=== PATIENT | male | born 1975 | race Two or more races ===

== ENCOUNTER 2017-06-15 11:08 | Emergency (ER) | payer SELFPAY ==
[~2017-06-15] VITALS: Ht 167.6 cm; Wt 79.4 kg
--- NOTE | 2017-06-15 11:08 | NUR ---
c/o sorethroat x 5 days. awaiting md order. noemy pt.
--- NOTE | 2017-06-15 11:15 | NUR ---
dr lin at bedside for eval
[2017-06-15] MEDS ORDERED: ONDANSETRON HCL/PF 4 MG/2 ML VIAL ONE (11:25)
[2017-06-15] MEDS ORDERED: IV NS 0.9% 1,000 ML ONE (11:25)
[2017-06-15] MEDS ORDERED: CEFTRIAXONE 1GM BAG (ER ONLY) 50 ML IV ONE (11:25)
[2017-06-15] MEDS ORDERED: KETOROLAC TROMETHAMINE INJ 30 MG/ML VIAL ONE (11:25)
[2017-06-15] MEDS ORDERED: IV SET PRIMARY 1 EA INFUS.SET MC ONE (11:25)
[2017-06-15] MEDS ORDERED: DEXAMETHASONE SOD PHOSPHATE 10 MG/ML VIAL ONE (11:25)
[2017-06-15] MEDS ORDERED: IV SET PRIMARY PUMP SET 1 EA INFUS.SET MC ONE (11:25)
--- NOTE | 2017-06-15 11:25 | NUR ---
lfa #18 iv access. blood sample collected sent to lab
--- NOTE | 2017-06-15 11:25 | NUR ---
BLOOD CULTURE DRAWN .DR KYLE MADE AWARE . REFUSED TO ORDER CLUTURE AT THIS TIME.
[2017-06-15] MEDS ORDERED: IV NS 0.9% 1,000 ML BAG IV ONE (11:30)
[2017-06-15] MEDS ORDERED: DEXAMETHASONE SOD PHOSPHATE 10 MG/ML VIAL IV ONE (11:30)
[2017-06-15] MEDS ORDERED: KETOROLAC TROMETHAMINE INJ 30 MG/ML VIAL IV ONE (11:30)
[2017-06-15] MEDS ORDERED: ONDANSETRON HCL/PF 4 MG/2 ML VIAL IVP ONE (11:30)
[2017-06-15] MEDS ORDERED: CEFTRIAXONE 1GM BAG (ER ONLY) 1 GM/50 ML PIGGYBACK IV ONE (11:30)
[2017-06-15 11:37] LABS: BASOPHILS # (AUTO) 0.2 /CMM (0.0-0.2); BASOPHILS % (AUTO) 1.5 % (0.0-2.0); EOSINOPHILS # (AUTO) 0.9 /CMM (0.0-0.7); HEMATOCRIT 44 % (39-51); HEMOGLOBIN 14.5 g/dL (13.5-17.5); LYMPHOCYTES # (AUTO) 1.4 /CMM (0.8-4.8); LYMPHOCYTES % (AUTO) 10.1 % (20.0-44.0); MEAN CORPUSCULAR HEMOGLOBIN 29 PG (26.0-33.0); MEAN CORPUSCULAR HGB CONC 33 g/dl (31.0-36.0); MEAN CORPUSCULAR VOLUME 88 fL (80-96); MONOCYTES # (AUTO) 0.9 /CMM (0.1-1.30); MONOCYTES % (AUTO) 6.6 % (2.0-12.0); NEUTROPHILS # (AUTO) 10.1 /CMM (1.8-8.9); NEUTROPHILS % (AUTO) 74.8 % (43.0-81.0); PLATELET COUNT (AUTO) 262 /CMM (150-450); RDW COEFFICIENT OF VARIATION 12.6 (11.5-15.0); RED BLOOD CELL COUNT(AUTO) 4.99 MIL/uL (4.5-6.0); WHITE BLOOD COUNT (AUTO) 13.5 K/uL (4.3-11.0)
[2017-06-15 11:46] LABS: CALCIUM, SERUM 8.8 mg/dL (8.5-10.1); CREATININE 0.7 mg/dL (0.6-1.3); POTASSIUM 3.7 mmol/L (3.5-5.1)
[2017-06-15] MEDS ORDERED: IOHEXOL-300 100 ML VIAL IV ONE (12:08)
[2017-06-15] MEDS ORDERED: IV NS 0.9% 250 ML IV ONE (12:08)
[2017-06-15] MEDS ORDERED: CT SWABBABLE VALVE TRANS SET 1 EA INFUS.SET MC ONE (12:08)
--- NOTE | 2017-06-15 13:15 | NUR ---
IV removed. Catheter intact and site benign. Pressure and 4x4 applied to site. No bleeding noted.
--- NOTE | 2017-06-15 13:15 | NUR ---
Patient discharged to home in stable condition. Written and verbal after care instructions given. Patient verbalizes understanding of instruction.
[2017-06-15 13:17] VITALS: BP 145/90
== END 2017-06-15 13:17 | disposition home or self-care (01) ==
LOC: ER 11:10
DX: J02.9 Acute pharyngitis, unspecified (principal); J03.90 Acute tonsillitis, unspecified; E11.9 Type 2 diabetes mellitus without complications
CPT/HCPCS: 36415; 70491; 80048; 85025; 96365; 96375; 99285; A4606; J0696; J1100; J1885; J2405; J7030; J7050; Q9967; Z7610

== ENCOUNTER 2017-06-16 09:44 | Inpatient (IN) | payer MEDICAID ==
[~2017-06-16] VITALS: Ht 167.6 cm; Wt 81.6 kg
--- NOTE | 2017-06-16 09:45 | NUR ---
PRESENTS SELF TO ED DT UNRESOLVED SORETHROAT AFTER ATB. PATIENT WAS IN ED YESTERDAY FOR SAME REASON. PATIENT CO 9/10 PAIN. SKIN IS WARM TO TOUCH AND NON DIAPHORETIC,. PATIENT IS AFEBRILE. VSS
--- NOTE | 2017-06-16 10:00 | NUR ---
ICV ACCESSED TO LAC 20. BLOOD SMPLE SENT TO LAB
[2017-06-16] MEDS ORDERED: FEE PK DOSING 1 MIN EA MC ONE (10:22)
[2017-06-16] MEDS ORDERED: IV NS 0.9% 500 ML IV ONE (10:59)
[2017-06-16] MEDS ORDERED: MORPHINE SULFATE INJ 4 MG/ML DISP.SYRIN ONE (10:59)
[2017-06-16] MEDS ORDERED: IV SET PRIMARY PUMP SET 1 EA INFUS.SET MC ONE ×4 (10:59→17:10)
[2017-06-16] MEDS ORDERED: MORPHINE SULFATE INJ 2 MG/ML DISP.SYRIN IV ONE (11:00)
[2017-06-16] MEDS ORDERED: LIDOCAINE 1%-EPI 1:100,000 20 ML VIAL TP ONE (11:00)
[2017-06-16] MEDS ORDERED: IV NS 0.9% 500 ML BAG IV ONE (11:00)
[2017-06-16] MEDS ORDERED: LIDOCAINE SOLN 4% 50 ML BOTTLE TP ONE (11:00)
[2017-06-16] MEDS ORDERED: LIDOCAINE HCL/PF 1% 30 ML SDV ONE (11:02)
[2017-06-16] MEDS ORDERED: LIDOCAINE 2%-EPI 1:100,000 30 ML VIAL ONE (11:06)
[2017-06-16] MEDS ORDERED: DEXAMETHASONE SOD PHOSPHATE 10 MG/ML VIAL ONE (12:05)
[2017-06-16] MEDS ORDERED: IV NS 0.9% 1,000 ML ONE ×2 (12:06→17:10)
[2017-06-16] MEDS ORDERED: KETOROLAC TROMETHAMINE INJ 30 MG/ML VIAL ONE (12:06)
--- NOTE | 2017-06-16 12:16 | NUR ---
PRESENTED CASE TO [facility] FOR HIGHER LEVEL OF CARE TRANSFER. AWAITING CALL BACK
[2017-06-16] MEDS ORDERED: IV NS 0.9% 1,000 ML BAG IV ONE (12:30)
[2017-06-16] MEDS ORDERED: DEXAMETHASONE SOD PHOSPHATE 10 MG/ML VIAL IV ONE (12:30)
[2017-06-16] MEDS ORDERED: KETOROLAC TROMETHAMINE INJ 30 MG/ML VIAL IV ONE (12:30)
[2017-06-16 12:34] LABS: BASOPHILS # (AUTO) 0.3 /CMM (0.0-0.2); BASOPHILS % (AUTO) 2.1 % (0.0-2.0); EOSINOPHILS # (AUTO) 0.1 /CMM (0.0-0.7); EOSINOPHILS % (AUTO) 0.4 % (0.0-6.0); HEMATOCRIT 40 % (39-51); LYMPHOCYTES # (AUTO) 1.5 /CMM (0.8-4.8); LYMPHOCYTES % (AUTO) 10.7 % (20.0-44.0); MEAN CORPUSCULAR HEMOGLOBIN 29 PG (26.0-33.0); MEAN CORPUSCULAR HGB CONC 33 g/dl (31.0-36.0); MEAN CORPUSCULAR VOLUME 88 fL (80-96); MONOCYTES % (AUTO) 7.7 % (2.0-12.0); NEUTROPHILS # (AUTO) 10.7 /CMM (1.8-8.9); NEUTROPHILS % (AUTO) 79.1 % (43.0-81.0); PLATELET COUNT (AUTO) 268 /CMM (150-450); RDW COEFFICIENT OF VARIATION 12.4 (11.5-15.0); RED BLOOD CELL COUNT(AUTO) 4.53 MIL/uL (4.5-6.0); WHITE BLOOD COUNT (AUTO) 13.6 K/uL (4.3-11.0)
[2017-06-16 12:44] LABS: CALCIUM, SERUM 8.4 mg/dL (8.5-10.1); CREATININE 0.7 mg/dL (0.6-1.3); POTASSIUM 4.2 mmol/L (3.5-5.1)
[2017-06-16] MEDS ORDERED: CLINDAMYCIN 900 MG in IV D5W 50 ML IV SCH (13:00)
--- NOTE | 2017-06-16 13:20 | NUR ---
[facility] TRANSFER LINE CALLED BACK. THEY WILL NOT BE ACCEPTING THE PATIENT DUE TO A LACK OF CAPACITY
--- NOTE | 2017-06-16 14:00 | NUR ---
LEFT MESSAGE WITH DR NAVIN STRINGER STRAINER CLEANER FOR CONSULT
--- NOTE | 2017-06-16 14:39 | NUR ---
LEFT MESSAGE WITH DR KYREE JUAN AUDIO VISUAL PROJECT MANAGER FOR CONSULT
--- NOTE | 2017-06-16 14:43 | NUR ---
DR KYREE JUAN CALLED, TRANSFERRED CALL TO DR CADENA
--- NOTE | 2017-06-16 14:47 | NUR ---
PER DR CADENA, DR JUAN WILL SEE THE PATIENT HERE TOMRROW
--- NOTE | 2017-06-16 14:49 | NUR ---
PAGED AUTOMATION QTP TESTER FOR [facility] DR ILYA THAKUR FOR ADMISSION
[2017-06-16] MEDS ORDERED: ZOLPIDEM TARTRATE 5 MG TABLET PO PRN (16:00)
[2017-06-16] MEDS ORDERED: HYDROCODONE/APAP 5/325MG 1 EACH TABLET PO PRN (16:00)
[2017-06-16] MEDS ORDERED: VANCOMYCIN 1 GM in IV D5W 250 ML IV SCH (16:00)
[2017-06-16] MEDS ORDERED: ONDANSETRON HCL/PF 4 MG/2 ML VIAL IVP PRN (16:00)
[2017-06-16] MEDS ORDERED: MAGNESIUM HYDROXIDE 30 ML UDC PO PRN (16:00)
[2017-06-16] MEDS ORDERED: MAG HYDROX/AL HYDROX/SIMETH 30 ML UDC PO PRN (16:00)
[2017-06-16] MEDS ORDERED: ACETAMINOPHEN 325 MG TABLET PO PRN (16:00)
[2017-06-16] MEDS ORDERED: MORPHINE SULFATE INJ 2 MG/ML DISP.SYRIN IV PRN (16:00)
[2017-06-16] MEDS ORDERED: Z GUARD REMEDY 2 OZ OINT TP PRN (16:00)
[2017-06-16] MEDS ORDERED: HYDROCODONE/APAP 10/325MG 1 EA TABLET PO PRN (16:00)
--- NOTE | 2017-06-16 17:04 | NUR ---
MELISSA OUT DR CARABALLO'S ORDER IN THE ED PER RONDA SWENSON SUP.
--- NOTE | 2017-06-16 17:06 | NUR ---
CALLED PHARMACY FOR SHILOH
[2017-06-16] MEDS: IV NS 0.9% 1,000 ML IV PRN (17:23)
[2017-06-16] MEDS ORDERED: PIPERACILLIN /TAZOBACTAM 4.5 G in IV D5W 50 ML IV ONE (17:30)
[2017-06-16] MEDS ORDERED: VANCOMYCIN 1 GM in IV D5W 250 ML IV ONE (17:30)
[2017-06-16] MEDS ORDERED: PIPERACILLIN /TAZOBACTAM 4.5 G in IV D5W 50 ML IV SCH (18:00)
--- NOTE | 2017-06-16 19:08 | NUR ---
Patient is resting comfortably in bed with eyes closed. Easily aroused. VSS
--- NOTE | 2017-06-16 19:10 | NUR ---
REPORT REC'D FROM EVER WHITMAN FOR PASTORA.
--- NOTE | 2017-06-16 20:39 | NUR ---
PT'S FAMILY IS AT THE BEDSIDE. PT AMBULATED TO THE BATHROOM AND BACK WITH A STEADY GAIT. VSS.
--- NOTE | 2017-06-16 21:23 | NUR ---
PT REQUESTED COFFEE. PT REC'D A CUP OF COFFEE WITH CREAMER AND SUGAR.
--- NOTE | 2017-06-16 22:03 | NUR ---
PT REQUESTED FOOD. DR. ANDINO OK'D SOFT DIET. NO SANDWICH. PT REC'D JELLO AND PUDDING.
[2017-06-16] MEDS ORDERED: IV SET PRIMARY 1 EA INFUS.SET MC ONE (22:12)
[2017-06-16] MEDS ORDERED: PIPERACILLIN /TAZOBACTAM 3.375 G VIAL IV ONE (22:12)
--- NOTE | 2017-06-16 22:32 | NUR ---
REJI MAYNARD-LUL IS AT THE BEDSIDE WITH MONSE GUTIERREZ (OUTPATIENT PHYSICAL THERAPIST).
--- NOTE | 2017-06-16 23:07 | NUR ---
PT REQUESTED A CUP OF COFFE. PT REC'D A CUP OF COFFEE WITH CREAMER AND SUGAR. PT TOLERATED PO WELL.
--- NOTE | 2017-06-16 23:25 | NUR ---
PT APPEARS TO BE RESTING COMFORTABLY WITH NO S/S OF PAIN OR DISTRESS.
[2017-06-16] MEDS: PIPERACILLIN /TAZOBACTAM 3.375 G in IV D5W 50 ML IV SCH (23:30)
[2017-06-17] MEDS ORDERED: IV SET PRIMARY PUMP SET 1 EA INFUS.SET MC ONE ×2 (00:54→09:01)
[2017-06-17] MEDS: VANCOMYCIN 1.25 GM in IV D5W 500 ML IV SCH ×3 (01:05→18:37)
--- NOTE | 2017-06-17 01:36 | NUR ---
PT APPEARS TO BE RESTING COMFORTABLY WITH NO S/S OF PAIN OR DISTRESS. WILL CONTINUE TO MONITOR THE PT.
--- NOTE | 2017-06-17 03:37 | NUR ---
PT IS SLEEPING SOUNDLY WITH NO S/S OF PAIN OR DISTRESS.
--- NOTE | 2017-06-17 05:15 | NUR ---
PT AMBULATED TO THE BATHROOM WITH A STEADY GAIT.
--- NOTE | 2017-06-17 05:30 | NUR ---
PT RETURNED FROM THE BATHROOM. PT WAS RECONNECTED TO THE MONITOR AND CONTINOUS PULSE OX. PT WAS ALSO RECONNECTED TO THE IVF.
[2017-06-17] MEDS: PIPERACILLIN /TAZOBACTAM 3.375 G in IV D5W 50 ML IV SCH ×3 (05:34→17:42)
--- NOTE | 2017-06-17 06:19 | NUR ---
ELASTIC YARN TWISTER IS AT THE BEDSIDE FOR BLOOD DRAW.
[2017-06-17 06:54] LABS: BASOPHILS % (AUTO) 0.2 % (0.0-2.0); EOSINOPHILS # (AUTO) 0.1 /CMM (0.0-0.7); EOSINOPHILS % (AUTO) 1.2 % (0.0-6.0); HEMATOCRIT 37 % (39-51); HEMOGLOBIN 12.6 g/dL (13.5-17.5); LYMPHOCYTES # (AUTO) 1.7 /CMM (0.8-4.8); LYMPHOCYTES % (AUTO) 18.6 % (20.0-44.0); MEAN CORPUSCULAR HEMOGLOBIN 30 PG (26.0-33.0); MEAN CORPUSCULAR HGB CONC 34 g/dl (31.0-36.0); MEAN CORPUSCULAR VOLUME 88 fL (80-96); MONOCYTES # (AUTO) 0.8 /CMM (0.1-1.30); MONOCYTES % (AUTO) 8.4 % (2.0-12.0); NEUTROPHILS # (AUTO) 6.5 /CMM (1.8-8.9); NEUTROPHILS % (AUTO) 71.6 % (43.0-81.0); PLATELET COUNT (AUTO) 265 /CMM (150-450); RDW COEFFICIENT OF VARIATION 13.4 (11.5-15.0); RED BLOOD CELL COUNT(AUTO) 4.23 MIL/uL (4.5-6.0); WHITE BLOOD COUNT (AUTO) 9.1 K/uL (4.3-11.0)
--- NOTE | 2017-06-17 06:58 | NUR ---
CALLED PHARMACY RE: LEXUS WILKS. PHARMACY TO CHECK THE ORDERS AND WILL FOLLOW UP WITH ER.
[2017-06-17] MEDS ORDERED: PANTOPRAZOLE 40 MG TABLET.DR PO ONE (07:07)
[2017-06-17] MEDS: PANTOPRAZOLE 40 MG TABLET.DR PO SCH (07:12)
--- NOTE | 2017-06-17 07:21 | NUR ---
REPORT GIVEN TO EVER SAUNDERS FOR PASTORA.
[2017-06-17 07:24] LABS: THYROID STIMULATING HORMONE 1.247 uIU/mL (0.358-3.74)
[2017-06-17 07:41] LABS: CALCIUM, SERUM 8.5 mg/dL (8.5-10.1); CREATININE 0.7 mg/dL (0.6-1.3); MAGNESIUM 1.9 mg/dL (1.8-2.4); PHOSPHORUS 3.1 mg/dL (2.5-4.9); POTASSIUM 4.3 mmol/L (3.5-5.1)
--- NOTE | 2017-06-17 07:53 | NUR ---
REPORT GIVEN TO LUIS CURTIS. PATIENT TO BE ADMITTED TO ROOM 201.
--- NOTE | 2017-06-17 07:58 | NUR ---
CONFIRMED WITH PHARMACIST, LEXUS MILTON TROUGH TO BE CHECKED AT 1600. 0900 AM DOSE OF VANCO CAN BE ADMINISTERED WHEN DUE.
--- NOTE | 2017-06-17 08:25 | NUR ---
PATIENT TRANSPORTED TO [facility] WITH EMT IN STABLE CONDITION.
[2017-06-17 09:00] VITALS: BP 123/81
[2017-06-17] MEDS ORDERED: SECONDARY IV SET 1 EA INFUS.SET MC ONE (09:00)
--- NOTE | 2017-06-17 09:00 | NUR ---
MS RN ADMITTING NOTES PATIENT ADMITTED TO UNIT @ 0830H VIA GURNEY ACCOMPANIED BY ER NURSE. ALERT AND ORIENTED X4, NO COMPLAINTS OF PAIN OR DISCOMFORTS VOICED DURING ADMISSION. PATIENT WITH DIAGNOSIS OF PERITOSILLAR ABSCESS S/P I & D ON 06/16/2017 IN THE EMERGENCY ROOM, NO OTHER SIGNIFICANT DIAGNOSIS BUT HAD APPENDECTOMY 7 YEARS AGO PER PT. HE HAS IV ACCESS ON LEFT AC G#18, INTACT AND PATENT AND STARTED ON IVF OF NS @75ML/HR. SKIN IS INTACT. V/S CHECKED AND RECORDED. WILL CONTINUE TO MONITOR PT'S STATUS ACCORDINGLY.
[2017-06-17] MEDS: IV NS 0.9% 1,000 ML IV PRN (10:03)
[2017-06-17 18:28] VITALS: BP 120/71
--- NOTE | 2017-06-17 18:55 | NUR ---
MS RN CLOSING NOTES PATIENT IN BED WITH GIRLFRIEND AT BEDSIDE. ALERT AND ORIENTED X 4, NO C/O PAIN VOICED SINCE ADMISSION. IV ACCESS G # 18 ON LEFT AC REDDENED. INSERTED NEW LINE ON RIGHT FOREARM G#22 THEN CONTINUED ON IV HYDRATION OF NS @ 75ML/HR. ALL NEEDS AND CARE PROVIDED WELL. CALL LIGHT WITHIN REACH. BED LOW AND LOCKED. ALL SAFETY MEASURES MAINTAINED. WILL ENDORSED TO AGRONOMY MANAGER NURSE FOR PASTORA.
--- NOTE | 2017-06-17 19:35 | NUR ---
RN OPENING NOTES RECEIVED REPORT FROM JER GALEAS RN. FOUND Pt AWAKE IN BED, WITH FAMILY VISITING AT BEDSIDE. Pt IS A/OX4, ITALIAN SPEAKING. NO S/S OF ACUTE DISTRESS AND SOB NOTED. IV ACCESS ON RFA #22G, IVF NS @75ML/HR. SAFETY MEASURES IN PLACE. BED LOW, LOCKED, HOB ELEVATED, SIDE RAILS UP, CALL SALINAS AND BEDSIDE TABLE WITHIN REACH.
[2017-06-17 20:10] VITALS: BP 129/75
[2017-06-17 22:00] VITALS: BP 130/65
[2017-06-18] MEDS: PIPERACILLIN /TAZOBACTAM 3.375 G in IV D5W 50 ML IV SCH ×4 (00:16→18:00)
[2017-06-18] MEDS: VANCOMYCIN 1.25 GM in IV D5W 500 ML IV SCH ×3 (02:07→16:19)
--- NOTE | 2017-06-18 06:36 | NUR ---
RN CLOSING NOTES NO SIGNIFICANT CHANGES IN Pt's CONDITION. NO S/S OF ACUTE DISTRESS OR SOB NOTED. ALL NEEDS MET AND ATTENDED TO. SAFETY MEASURES IN PLACE. WILL ENDORSE TO DAYSHIFT RN FOR Pt's PASTORA.
--- NOTE | 2017-06-18 07:19 | NUR ---
MS RN OPENING NOTES RECEIVED PATIENT ASLEEP IN BED IN NO ACUTE SIGNS OF DISTRESS. A/O X4, HOB ELEVATED. MALAY SPEAKING, NO C/O PAIN OR DISCOMFORTS AT THIS TIME. ON ROOM AIR, BREATHING EVEN AND UNLABORED. IV ACCESS ON RFA #22G INTACT AND PATENT, IVF OF NS @75ML/HR INFUSING WELL. BED LOW AND LOCKED WITH SIDE RAILS UP APPROPRIATE. CALL SALINAS AT BEDSIDE TABLE WITHIN REACH. WIIL MAINTAIN ALL SAFETY MEASURES AND WILL CONTINUE TO MONITOR PT ACCORDINGLY.
[2017-06-18] MEDS: PANTOPRAZOLE 40 MG TABLET.DR PO SCH (07:53)
[2017-06-18 08:00] VITALS: BP_SYST 126; BP_DIAS 80; BP_DIAS 90
--- NOTE | 2017-06-18 14:07 | NUR ---
RN NOTES CALLED DR JUAN [facility] TEL # [phone], SPOKE TO ONE OF THE STAFF AND SAID THAT SHE WILL RELAY THE MESSAGE TO DR. JUAN. UNIT [address] JUAN TO CALL BACK. AWAITING FOR RETURN CALL.
[2017-06-18] MEDS: IV NS 0.9% 1,000 ML IV PRN (14:43)
[2017-06-18] MEDS ORDERED: DEXA1TAB2 PO (15:27)
[2017-06-18] MEDS ORDERED: AMOX1TAB16 PO (15:27)
--- NOTE | 2017-06-18 15:47 | NUR ---
RN NOTES CLINICAL ENGINEER MADE AN ORDER FOR PT TO BE DISCHARGED, CALLED DR DRAKE ROBERTSON TO CANCELLED FOR HIM TO SEE PT.
[2017-06-18 16:00] VITALS: BP 128/80
--- NOTE | 2017-06-18 18:21 | NUR ---
RN DISCHARGED NOTES PATIENT DISCHARGE HOME AT 1830H IN STABLE CONDITION. HE LEFT UNIT AMBULATORY ACCOMPANIED BY STAFF TO THE LOBBY. HIS GIRLFRIEND WAITING FOR HIM ON THE LOBBY AND WILL TAKE HIM HOME. PATIENT IS ALERT AND ORIENTED X4, NO C/O PAIN OR DISTRESS DURING DISCHARGE. V/S TAKEN AND RECORDED. SKIN IS INTACT. BELONGINGS CHECKED, COUNTED AND SIGNED FORM. HEALTH TEACHINGS GIVEN AND VERBALIZED UNDERSTANDING. MD AND NURSING K 9 POLICE OFFICER AWARE OF DISCHARGE.
== END 2017-06-18 18:15 | disposition home or self-care (01) | DRG 97 ==
LOC: ER 10:21 → MEDSG2 06-17 08:15
PROVIDERS: ADMIT Nurse Practitioner Acute Care; ATTEND Nurse Practitioner Acute Care
PROC: 0C9PXZZ Drainage of Tonsils, External Approach (ICD-10-PCS; principal; 2017-06-17)
DX: J36 Peritonsillar abscess (principal); E11.65 Type 2 diabetes mellitus with hyperglycemia; D72.829 Elevated white blood cell count, unspecified; Z87.898 Personal history of other specified conditions; Z90.49 Acquired absence of other specified parts of digestive tract
CPT/HCPCS: 36415; 80048-TC; 80061-TC; 80202-TC; 83735-TC; 84100-TC; 84443-TC; 85025-TC; 87081-TC; A4606; J1100; J1885; J2270; J2543; J3370; J3490; J7030; J7040; J7060; Z7610

== ENCOUNTER 2017-12-19 07:54 | Emergency (ER) | payer SELFPAY ==
[~2017-12-19] VITALS: Ht 175.3 cm; Wt 76.2 kg
[~2017-12-19 07:54] MED LIST: AMOX1TAB16 PO; DEXA1TAB2 PO
--- NOTE | 2017-12-19 08:10 | NUR ---
AAOX3, BIB SELF TO ER C/O DYSURIA AND HEMATURIA X 3 DAYS. ALSO C/O PAIN DURING URINATION. SKIN IS WARM AND DRY. RR IS EVEN AND UNLABORED WITH NAD NOTED. AWAITING MD FOR EVAL.
[2017-12-19] MEDS ORDERED: PHENAZOPYRIDINE HCL 200 MG TABLET ONE (08:53)
[2017-12-19] MEDS ORDERED: PHENAZOPYRIDINE HCL 200 MG TABLET PO ONE (09:00)
[2017-12-19 09:20] LABS: APPEARANCE,URINE CLOUDY (CLEAR); BILIRUBIN,URINE NEGATIVE (NEGATIVE); BLOOD, URINE 3+ Ery/uL (NEGATIVE); COLOR,URINE YELLOW (YELLOW); KETONES,URINE NEGATIVE (NEGATIVE); LEUKOCYTE ESTERASE ,URINE 1+ (NEGATIVE); NITRITE, URINE NEGATIVE (NEGATIVE); PROTEIN,URINE 2+ mg/dl (NEGATIVE); UGLUCOSE TRACE mg/dL (NEGATIVE); UROBILINOGEN,URINE 0.2 EU/dL (0.2)
[2017-12-19 09:23] LABS: RBC,URINE 21-50 /HPF (0-2)
[2017-12-19 09:24] LABS: BACTERIA,URINE Few /HPF (None Seen); SQUAMOUS EPITHELIAL CELL,UR Few /HPF (None Seen); WBC,URINE 51-80 /HPF (0-3)
[2017-12-19] MEDS ORDERED: CEFTRIAXONE 500 MG VIAL ONE (09:54)
[2017-12-19] MEDS ORDERED: AZITHROMYCIN 250 MG TABLET ONE (09:55)
[2017-12-19] MEDS ORDERED: LIDOCAINE /MPF 1% VIAL 5 ML VIAL ONE (09:59)
[2017-12-19] MEDS ORDERED: AZITHROMYCIN 250 MG TABLET PO ONE (10:00)
[2017-12-19] MEDS ORDERED: CEFTRIAXONE 1 G VIAL IM ONE (10:00)
[2017-12-19 10:16] VITALS: BP 128/82
== END 2017-12-19 10:17 | disposition home or self-care (01) ==
LOC: ER 08:03
DX: N39.0 Urinary tract infection, site not specified (principal); E11.9 Type 2 diabetes mellitus without complications
CPT/HCPCS: 81001; 87077; 87086; 87186; 87491; 87591; 96372; 99284; A4606; J0696; J3490; Z7610; 81000-TC

== ENCOUNTER 2018-01-28 16:23 | Emergency (ER) | payer SELFPAY ==
[~2018-01-28] VITALS: Ht 172.7 cm; Wt 81.6 kg
--- NOTE | 2018-01-28 18:15 | NUR ---
PT PRESENTED TO THE ER WITH A C/O SCROTAL ABCESS. PT TRIAGED AND TAKEN TO ROOM #16. PT CHANGED INTO A GOWN AND IS AWAITING EVAL BY SHERRELL MOORE.
[2018-01-28] MEDS ORDERED: CEPHALEXIN MONOHYDRATE 500 MG CAPSULE PO ONE ×2 (18:38→19:00)
--- NOTE | 2018-01-28 18:40 | NUR ---
PT REC'D MEDICATION ORDERED. I & D NOT NEEDED.
[2018-01-28 18:49] VITALS: BP 123/78
== END 2018-01-28 18:50 | disposition home or self-care (01) ==
LOC: ER 16:26
DX: N47.6 Balanoposthitis (principal); E11.9 Type 2 diabetes mellitus without complications; Z79.84 Long term (current) use of oral hypoglycemic drugs
CPT/HCPCS: 82962-TC; A4606; A6402; Z7610

== ENCOUNTER 2019-12-19 11:26 | Emergency (ER) | payer SELFPAY ==
[~2019-12-19] VITALS: Ht 167.6 cm; Wt 89.4 kg
--- NOTE | 2019-12-19 11:48 | NUR ---
MONO IN FOR "BLOOD/PAIN WITH URINE x 3DAYS". TO ER BED 10, HOOKED TO MONITOR, CHANGED TO HOSP GOWN, PROVIDED W WARM BLANKET, AWAITING MD CYR.
--- NOTE | 2019-12-19 12:20 | NUR ---
SHERRELL MONREAL AT BEDSIDE
[2019-12-19 12:40] LABS: APPEARANCE,URINE SL CLOUDY (CLEAR); BILIRUBIN,URINE NEGATIVE (NEGATIVE); BLOOD, URINE MODERATE Ery/uL (NEGATIVE); KETONES,URINE NEGATIVE (NEGATIVE); LEUKOCYTE ESTERASE ,URINE LARGE (NEGATIVE); NITRITE, URINE NEGATIVE (NEGATIVE); PROTEIN,URINE NEGATIVE (NEGATIVE); UGLUCOSE NEGATIVE (NEGATIVE); UROBILINOGEN,URINE 0.2 EU/dL (0.2)
[2019-12-19 12:41] LABS: COLOR,URINE STRAW (YELLOW)
[2019-12-19 12:53] LABS: BACTERIA,URINE Few /HPF (None Seen); RBC,URINE 81-100 /HPF (0-2); WBC,URINE TOO NUMEROUS TO COUN /HPF (0-3)
[2019-12-19 12:54] LABS: SQUAMOUS EPITHELIAL CELL,UR Rare /HPF (None Seen)
[2019-12-19] MEDS ORDERED: PHENAZOPYRIDINE HCL 200 MG TABLET ONE (13:14)
[2019-12-19] MEDS ORDERED: CEPHALEXIN MONOHYDRATE 500 MG CAPSULE PO ONE ×2 (13:14→13:30)
[2019-12-19 13:21] VITALS: BP 151/82
--- NOTE | 2019-12-19 13:21 | NUR ---
Patient discharged to home in stable condition. Written and verbal after care instructions given. Patient verbalizes understanding of instruction.
[2019-12-19] MEDS ORDERED: PHENAZOPYRIDINE HCL 200 MG TABLET PO ONE (13:30)
== END 2019-12-19 13:22 | disposition home or self-care (01) ==
LOC: ER 11:28
DX: N39.0 Urinary tract infection, site not specified (principal); E11.9 Type 2 diabetes mellitus without complications; Z79.899 Other long term (current) drug therapy
CPT/HCPCS: 81000-TC; 87086-TC; 87186-TC

== ENCOUNTER 2020-08-31 13:50 | Emergency (ER) | payer SELFPAY ==
[~2020-08-31] VITALS: Ht 165.1 cm; Wt 81.6 kg
[2020-08-31 14:00] VITALS: BP 148/97
--- NOTE | 2020-08-31 15:47 | NUR ---
unable to provide name of medication. d/c in stable condition.
== END 2020-08-31 15:48 | disposition home or self-care (01) ==
LOC: ER 13:51
DX: E11.9 Type 2 diabetes mellitus without complications (principal); Z76.0 Encounter for issue of repeat prescription; R03.0 Elevated blood-pressure reading, without diagnosis of hypertension
CPT/HCPCS: 82962-TC

== ENCOUNTER 2020-10-26 05:37 | Emergency (ER) | payer MEDICAID ==
[~2020-10-26] VITALS: Ht 182.9 cm; Wt 77.1 kg
[2020-10-26 05:39] VITALS: BP 168/112
--- NOTE | 2020-10-26 06:22 | NUR ---
DR MANUEL AT BEDSIDE FOR EVAL
--- NOTE | 2020-10-26 06:27 | NUR ---
EKG AT BEDSIDE
[2020-10-26] MEDS ORDERED: KETOROLAC TROMETHAMINE 15 MG/ML VIAL ONE (06:29)
[2020-10-26] MEDS ORDERED: KETOROLAC TROMETHAMINE INJ 30 MG/ML VIAL IM ONE (06:30)
--- NOTE | 2020-10-26 06:45 | NUR ---
Patient discharged to home in stable condition. Written and verbal after care instructions given. Patient verbalizes understanding of instruction.
== END 2020-10-26 06:45 | disposition home or self-care (01) ==
LOC: ER 05:38
DX: S46.811A Strain of other muscles, fascia and tendons at shoulder and upper arm level, right arm, initial encounter (principal); I45.10 Unspecified right bundle-branch block; E11.9 Type 2 diabetes mellitus without complications; Z79.899 Other long term (current) drug therapy; X58.XXXA Exposure to other specified factors, initial encounter; Y93.89 Activity, other specified; Y92.89 Other specified places as the place of occurrence of the external cause; Y99.8 Other external cause status
CPT/HCPCS: 93005; 96372; 99283; J1885

== ENCOUNTER 2020-12-09 20:14 | Emergency (ER) | payer MEDICAID ==
[~2020-12-09] VITALS: Ht 172.7 cm; Wt 81.6 kg
[2020-12-09 20:15] VITALS: BP 152/66
[2020-12-09] MEDS ORDERED: TDAP [DIPH/PERTUSSIS/TET] 0.5 ML VIAL IM ONE (21:26)
[2020-12-09] MEDS: TDAP [DIPH/PERTUSSIS/TET] 0.5 ML VIAL IM ONE (21:36)
--- NOTE | 2020-12-09 21:43 | NUR ---
Patient discharged to home in stable condition. Written and verbal after care instructions given. Patient verbalizes understanding of instruction.
== END 2020-12-09 21:45 | disposition home or self-care (01) ==
LOC: ER 20:14
DX: S60.552A Superficial foreign body of left hand, initial encounter (principal); E11.9 Type 2 diabetes mellitus without complications; Z79.899 Other long term (current) drug therapy; W45.8XXA Other foreign body or object entering through skin, initial encounter; Y93.89 Activity, other specified; Y92.89 Other specified places as the place of occurrence of the external cause; Y99.8 Other external cause status
CPT/HCPCS: 73130-TC; 90715

== ENCOUNTER 2022-06-23 17:21 | Emergency (ER) | payer MEDICAID ==
[~2022-06-23] VITALS: Ht 167.6 cm; Wt 68.0 kg
--- NOTE | 2022-06-23 18:30 | NUR ---
47 YRS MALE C/O FROM HOME C/O ABDOMINALE PAIN FOR 5 WEEK NO N/V
--- NOTE | 2022-06-23 18:33 | NUR ---
URINE COLLECTED AND SENT TO LAB
--- NOTE | 2022-06-23 19:01 | NUR ---
BLOOD DROW BY LAB TACH
--- NOTE | 2022-06-23 19:26 | NUR ---
HAND OFF TO ROMAINE CURTIS
[2022-06-23 19:40] LABS: BILIRUBIN,URINE NEGATIVE (NEGATIVE); COLOR,URINE YELLOW (YELLOW); LEUKOCYTE ESTERASE ,URINE NEGATIVE (NEGATIVE); NITRITE, URINE NEGATIVE (NEGATIVE); PH,URINE 6.5 (5.0-8.0); PROTEIN,URINE NEGATIVE (NEGATIVE); UGLUCOSE >=1000 mg/dL (NEGATIVE); UROBILINOGEN,URINE 0.2 EU/dL (0.2)
[2022-06-23 19:45] LABS: BACTERIA,URINE Rare /HPF (None Seen); RBC,URINE 0-2 /HPF (0-2); SQUAMOUS EPITHELIAL CELL,UR Few /HPF (None Seen)
--- NOTE | 2022-06-23 19:47 | NUR ---
SEEN AND EXAMINED PATIENT AT BEDSIDE. PATIENT IS [place] CITIZEN SPEAKING. HE TOLD ME THAT HE STATED A DIFFERENT COMPLAINT COMPARED TO HIS ACTUAL PROBLEM. PER PATIENT, HE WAS HAVING GENITAL PAIN. EXAMINATION DONE AND SEEN MULTIPLE SMALL CUTS ON PATIENT'S PREPIUS. MADE AWARE. ESL TUTOR PRESENT AT BEDSIDE.
[2022-06-23 20:06] LABS: BASOPHILS % (AUTO) 0.4 % (0.0-2.0); EOSINOPHILS % (AUTO) 19.6 % (0.0-6.0); HEMATOCRIT 42 % (39-51); HEMOGLOBIN 14.3 g/dL (13.5-17.5); LYMPHOCYTES # (AUTO) 1.6 K/uL (0.8-4.8); LYMPHOCYTES % (AUTO) 21.8 % (20.0-44.0); MEAN CORPUSCULAR HGB CONC 34 g/dl (31.0-36.0); MEAN CORPUSCULAR VOLUME 86 fL (80-96); MONOCYTES # (AUTO) 0.5 K/uL (0.1-1.30); MONOCYTES % (AUTO) 6.8 % (2.0-12.0); NEUTROPHILS # (AUTO) 3.8 K/uL (1.8-8.9); NEUTROPHILS % (AUTO) 51.4 % (43.0-81.0); PLATELET COUNT (AUTO) 236 K/uL (150-450); RED BLOOD CELL COUNT(AUTO) 4.91 MIL/uL (4.5-6.0); WHITE BLOOD COUNT (AUTO) 7.3 K/uL (4.3-11.0)
[2022-06-23 20:13] LABS: CALCIUM, SERUM 8.9 mg/dL (8.5-10.1); CREATININE 0.9 mg/dL (0.6-1.3)
[2022-06-23 20:25] LABS: ALBUMIN 3.5 g/dL (3.4-5.0); BILIRUBIN,DIRECT 0.1 mg/dL (0.0-0.2); BILIRUBIN,TOTAL 0.2 mg/dL (0.2-1.0); TOTAL PROTEIN, SERUM 7.1 g/dL (6.4-8.2)
[2022-06-23] MEDS ORDERED: CLOT15CR27 TP (21:02)
--- NOTE | 2022-06-23 21:51 | NUR ---
Patient discharged to home in stable condition. Written and verbal after care instructions given. Patient verbalizes understanding of instruction. Pt ambulatory with a steady gait
[2022-06-23 21:52] VITALS: BP 137/75
== END 2022-06-23 21:52 | disposition home or self-care (01) ==
LOC: ER 17:28
DX: N47.6 Balanoposthitis (principal); E11.9 Type 2 diabetes mellitus without complications; Z79.899 Other long term (current) drug therapy
CPT/HCPCS: 36415; 80048-TC; 80076-TC; 81001; 83690-TC; 85025-TC

== ENCOUNTER 2022-07-22 12:07 | Emergency (ER) | payer MEDICAID ==
[~2022-07-22] VITALS: Ht 162.6 cm; Wt 81.6 kg
[~2022-07-22 12:07] MED LIST changes: +CLOT15CR27 TP
[2022-07-22 12:23] VITALS: BP 139/57
--- NOTE | 2022-07-22 12:23 | NUR ---
BIBS AFTER NOTICING A CUT ON THE TIP OF HIS PENIS, DENIES ANY PAIN AT THIS TIME. AWAITING MD CYR.
--- NOTE | 2022-07-22 12:56 | NUR ---
DR MONTAGUE AT BEDSIDE
[2022-07-22] MEDS ORDERED: CLOT15CR27 TP (13:08)
--- NOTE | 2022-07-22 13:13 | NUR ---
Patient discharged to home in stable condition. Written and verbal after care instructions given. Patient verbalizes understanding of instruction.
== END 2022-07-22 13:14 | disposition home or self-care (01) ==
LOC: ER 12:08
DX: N47.6 Balanoposthitis (principal); E11.9 Type 2 diabetes mellitus without complications

== ENCOUNTER 2023-10-23 16:59 | Emergency (ER) | payer MEDICAID, OTHER ==
[~2023-10-23] VITALS: Ht 167.6 cm; Wt 59.9 kg
[2023-10-23 17:12] VITALS: BP 144/89; TEMP 98.9; O2SAT 100
[2023-10-23] MEDS ORDERED: IBUP-1955 PO (17:34)
[2023-10-23] MEDS ORDERED: ACET-2605 PO (17:34)
[2023-10-24] MEDS ORDERED: GUAI-671 PO (07:43)
== END 2023-10-23 17:57 | disposition home or self-care (01) ==
LOC: ER 17:07
DX: J06.9 Acute upper respiratory infection, unspecified (principal); E11.9 Type 2 diabetes mellitus without complications

== ENCOUNTER 2023-10-24 07:22 | Emergency (ER) | payer OTHER ==
[~2023-10-24] VITALS: Ht 167.6 cm; Wt 71.2 kg
[~2023-10-24 07:22] MED LIST changes: +ACET-2605 PO; +IBUP-1955 PO
[2023-10-24 07:29] VITALS: BP 132/84; TEMP 98.7; O2SAT 100
[2023-10-24] MEDS ORDERED: GUAI-671 PO (07:43)
== END 2023-10-24 08:04 | disposition home or self-care (01) ==
LOC: ER 07:32
DX: J20.9 Acute bronchitis, unspecified (principal); E11.9 Type 2 diabetes mellitus without complications